=== PATIENT | female | born 1990 | race Caucasian/White ===

== ENCOUNTER 2016-05-04 23:11 | Emergency (ER) | payer BC, OTHER ==
[~2016-05-04] VITALS: Ht 167.6 cm; Wt 55.0 kg
[2016-05-04 23:17] VITALS: Ht 167.6 cm; Wt 55.0 kg
[2016-05-05 02:09] LABS: ADD UMIC YES; URINE BILIRUBIN (Dip) NEGATIVE (NEGATIVE); URINE BLOOD (Dip) 3+ (NEGATIVE); URINE GLUCOSE (Dip) NEGATIVE (NEGATIVE); URINE KETONES (Dip) NEGATIVE (NEGATIVE); URINE LEUKOCYTE ESTERASE (Dip) 1+ (NEGATIVE); URINE NITRITE (Dip) NEGATIVE (NEGATIVE); URINE TOTAL PROTEIN (Dip) NEGATIVE (NEGATIVE); URINE UROBILINOGEN (Dip) 0.2 E.U./dL (0.1-1.0)
[2016-05-05 02:20] LABS: URINE COLOR AMBER (YELLOW)
[2016-05-05 02:26] LABS: SQUAMOUS EPITHELIAL CELL,UR FEW; URINE RBCS >200 /HPF (0)
[2016-05-05 02:31] LABS: BACTERIA,URINE OCCASIONAL
[2016-05-05] MEDS ORDERED: CEPH-443 PO (02:38)
--- NOTE | 2016-05-05 02:42 | ERD ---
ER Documentation Chief Complaint Date/Time DATE: 05/05/16 TIME: 02:40 Chief Complaint blood in urine x 1 day HPI Patient is a 25-year-old female who presents with hematuria that began today after a martial arts class. She also admits to mild pelvic pressure. Denies any pain. Last menstrual period ended last week. Denies any nausea or vomiting or fever. ROS All systems reviewed and are negative except as per history of present illness. Medications Home Meds Active Scripts Cephalexin* (Keflex*) 500 Mg Capsule, 500 MG PO BID for 7 Days, CAP Prov:CRISTINA LOPEZ PA-C 05/05/16 Allergies Allergies: Coded Allergies: No Known Allergy (Unverified , 05/04/16) PMhx/Soc History of Surgery: No Anesthesia Reaction: No Hx Neurological Disorder: No Hx Respiratory Disorders: No Hx Cardiac Disorders: No Hx Psychiatric Problems: No Hx Miscellaneous Medical Probl: No Hx Alcohol Use: No Hx Substance Use: No Hx Tobacco Use: No Smoking Status: Never smoker FmHx Family History: No diabetes Physical Exam Vitals Vital Signs Date Time Temp Pulse Resp B/P Pulse Ox O2 Delivery O2 Flow Rate FiO2 05/04/16 23:17 97.3 72 20 120/87 99 Physical Exam General: well developed, well nourished, alert, nontoxic, no distress Head: normocephalic, atraumatic Neck: Supple, nontender, no lymphadenopathy, no midline tenderness Respiratory: Clear to auscaultation bilaterally, speaks in full sentences, no use of accesory muscles or labored breathing, no rales, ronchi, or wheezing Cardiovascular: RRR, No murmurs GI: soft, non tender, non distended, negative murphys sign, negative mcburneys point tenderness, no cva tenderness bilaterally, no rebound or guarding Back: no midline tenderness, no step offs or bony abnormalities, sensation to light touch in tact Results 24 hrs Laboratory Tests Test 05/05/16 02:00 Urine Bacteria OCCASIONAL Urine Bilirubin NEGATIVE Urine Clarity HAZY Urine Color JET Urine Glucose NEGATIVE% Urine Hemoglobin 3+ Urine Ketones NEGATIVE Urine Leukocyte Esterase 1+ Urine Microscopic RBC >200/HPF Urine Microscopic WBC 10-25/HPF Urine Nitrite NEGATIVE Urine Specific [place] 1.010 Urine Squamous Epithelial Cells FEW Urine Total Protein NEGATIVE Urine Urobilinogen 0.2 E.U./dL Urine pH 5.5 Procedures/MDM 25-year-old female presents with hematuria mild pelvic pressure. Vital signs are all within normal limits. Urine dip shows evidence of urinary tract infection and she will be treated with Keflex. Low suspicion for Pylonephrtis. Negative for . Recommended this patient follow up with her primary care doctor within 48 hours or return to the emergency room for any worsening of symptoms. However this time I do believe there is suitable for outpatient management. I answered all their questions and they agreed with the plan and were discharged home. Departure Diagnosis: Primary Impression: Cystitis Condition: Stable Patient Instructions: Cystitis Additional Instructions: Call your primary care doctor TOMORROW for an appointment during the next 1-2 days.See the doctor sooner or return here if your condition worsens before your appointment time. CRISTINA LOPEZ PA-C May 05, 2016 02:41
== END 2016-05-05 02:51 | disposition home or self-care (01) ==
LOC: FTE 23:11
DX: N30.01 Acute cystitis with hematuria (principal); R10.2 Pelvic and perineal pain
CPT/HCPCS: 81001; 81003; 99283